=== PATIENT | male | born 1965 | race American Indian/Alaskan Native ===

== ENCOUNTER 2016-10-13 21:56 | Emergency (ER) | payer SELFPAY ==
[2016-10-13 22:23] VITALS: BP 150/90; PULSE 64; RESP 20; TEMP 98.6; O2SAT 96
--- NOTE | 2016-10-13 23:04 | C.PDOC ---
History Of Present Illness Patient is a 51 year old male who presents to the ER with a complaint of left lower back pain and right sided neck pain after slipping and landing forward last night. Patient denies weakness, numbness or incontinence. Time Seen by Provider: 10/13/16 22:39 Chief Complaint (Nursing): Back Pain History Per: Patient History/Exam Limitations: no limitations Onset/Duration Of Symptoms: Hrs Current Symptoms Are (Timing): Still Present Quality Of Discomfort: Unable To Describe Previous Symptoms: None Associated Symptoms: denies: Incontinence, New Weakness, New Numbness Exacerbating Factor(s): Nothing Recent travel outside of the [place]: No Past Medical History Reviewed: Historical Data, Nursing Documentation, Vital Signs Vital Signs: Last Vital Signs Temp 98.6 F 10/13/16 22:22 Pulse 64 10/13/16 22:22 Resp 20 10/13/16 22:22 BP 150/90 10/13/16 22:22 Pulse Ox 96 10/14/16 00:42 - Medical History PMH: No Chronic Diseases Surgical History: No Surg Hx Family History: States: Unknown Family Hx - Social History Hx Tobacco Use: No Hx Alcohol Use: No Hx Substance Use: No - Immunization History Hx Tetanus Toxoid Vaccination: No Hx Influenza Vaccination: No Hx Pneumococcal Vaccination: No Review Of Systems Genitourinary: Negative for: Incontinence Musculoskeletal: Positive for: Neck Pain (Right sided), Back Pain (Left lower) Neurological: Negative for: Weakness, Numbness Physical Exam - Physical Exam Appears: Non-toxic, Other (Comfortable) Skin: Normal Color, Warm, Dry Head: Atraumatic, Normacephalic Oral Mucosa: Moist Neck: Normal, No Midline Cervical Tenderness, No Paracervical Tenderness, Supple Back: No CVA Tenderness, No Vertebral Tenderness, Paraspinal Tenderness (Left lumbar) Extremity: Normal ROM (x4), No Tenderness, No Deformity Neurological/Psych: Oriented x3, Normal Speech, Normal Cognition Gait: Steady ED Course And Treatment O2 Sat by Pulse Oximetry: 96 (Room air) Pulse Ox Interpretation: Normal Progress Note: Motrin administered. On reevaluation, patient is ambulatory in the ER and no longer in pain. Will instructed to follow up with PMD and discharge home. Disposition Counseled Patient/Family Regarding: Diagnosis, Need For Followup, Rx Given - Disposition Referrals: [facility] [Outside] [facility] [Outside] Disposition: HOME/ ROUTINE Disposition Time: 23:01 Condition: STABLE Additional Instructions: Take meds as directed Follow up with PMD or in clinic Return to ER if worse Prescriptions: Cyclobenzaprine [Cyclobenzaprine HCl] 10 mg PO HS #7 tab Ibuprofen [Motrin] 600 mg PO Q6H #20 tab Instructions: Muscle Strain (ED) Forms: Work Excuse - Clinical Impression Clinical Impression: Low back strain - Scribe Statement The provider has reviewed the documentation as recorded by the Scribgerri Rodas All medical record entries made by the Emmaibgerri were at my direction and personally dictated by me. I have reviewed the chart and agree that the record accurately reflects my personal performance of the history, physical exam, medical decision making, and the department course for this patient. I have also personally directed, reviewed, and agree with the discharge instructions and disposition.
== END 2016-10-13 23:14 | disposition home or self-care (01) ==
LOC: C.ER 21:56
DX: S39.012A Strain of muscle, fascia and tendon of lower back, initial encounter (principal); W01.0XXA Fall on same level from slipping, tripping and stumbling without subsequent striking against object, initial encounter